=== PATIENT | male | born 1970 | race American Indian/Alaskan Native ===

== ENCOUNTER 2019-02-10 19:20 | Emergency (ER) | payer OTHER ==
[2019-02-10 19:50] VITALS: BP 118/100
--- NOTE | 2019-02-10 19:50 | Emergency Department Report ---
Blank Doc - Documentation Documentation: 48 y o male presents with alcohol intoxication was found by EMS at [facility] main side eval
[2019-02-10 20:24] LABS: Bilirubin,Urine NEG (Negative); Blood,Urine SM (Negative); Color,Urine Yellow (Yellow); Protein,Urine <15 mg/dL mg/dL (Negative); Urobilinogen,Urine < 2.0 mg/dL (<2.0); WBC,Urine < 1.0 /HPF (0.0-6.0)
[2019-02-10 20:31] LABS: Amphetamine Screen,Urine PRESUMPTIVE NEGATIVE; Benzodiazepines Screen,Urine PRESUMPTIVE NEGATIVE; Cannabinoid Screen,Urine PRESUMPTIVE NEGATIVE; Cocaine Screen,Urine PRESUMPTIVE NEGATIVE; Methadone Screen,Urine PRESUMPTIVE NEGATIVE; Opiate Screen,Urine PRESUMPTIVE NEGATIVE
== END 2019-02-10 21:00 | disposition left against medical advice (07) ==
LOC: ED 19:20
DX: R41.82 Altered mental status, unspecified (principal); Z53.21 Procedure and treatment not carried out due to patient leaving prior to being seen by health care provider
CPT/HCPCS: 80307; 81001

== ENCOUNTER 2022-05-10 20:57 | Emergency (ER) | payer SELFPAY ==
[2022-05-10 21:36] VITALS: BP 124/70
== END 2022-05-11 10:40 | disposition left against medical advice (07) ==
LOC: ED 20:57
DX: F10.129 Alcohol abuse with intoxication, unspecified (principal); Z53.21 Procedure and treatment not carried out due to patient leaving prior to being seen by health care provider